=== PATIENT | male | born 1995 | race Caucasian/White ===

== ENCOUNTER 2018-12-13 05:53 | Emergency (ER) | payer OTHER, SELFPAY ==
[~2018-12-13] VITALS: Ht 165.1 cm; Wt 63.0 kg
[2018-12-13 06:02] VITALS: BP 106/65
== END 2018-12-13 09:07 | disposition left against medical advice (07) ==
LOC: ER 05:53
DX: M79.10 Myalgia, unspecified site (principal); F20.9 Schizophrenia, unspecified; F31.9 Bipolar disorder, unspecified
CPT/HCPCS: 99283

== ENCOUNTER 2018-12-13 09:17 | Emergency (ER) | payer OTHER, SELFPAY ==
[~2018-12-13] VITALS: Ht 160 cm; Wt 59.0 kg
[2018-12-13] MEDS ORDERED: ACETAMINOPHEN 325MG TABLET PO STA (20:13)
[2018-12-13 21:42] LABS: CHLORIDE 105 mEq/L (98-107)
[2018-12-13 21:45] LABS: BASOPHILS % 0.5 % (0.0-2.0); EOSINOPHILS % 0.3 % (0.0-5.0); HEMATOCRIT. 41.5 % (42.0-52.0); HEMOGLOBIN. 13.9 g/dL (14.0-18.0); LYMPHOCYTES % 9.9 % (20.0-50.0); MEAN CORPUSCULAR HEMOGLOBIN 30.4 pg (28.0-32.0); MEAN CORPUSCULAR VOLUME 90.6 fL (80.0-94.0); MEAN PLATELET VOLUME 8.7 fl (7.4-10.4); MONOCYTES % 12.5 % (2.0-8.0); NEUTROPHILS % 76.8 % (40.0-76.0); PLATELET 222 x1000/uL (130-400); RED BLOOD CELL COUNT 4.58 mill/uL (4.7-6.1); RED CELL DISTRIBUTION WIDTH 13.1 % (11.6-14.6)
[2018-12-13 21:47] LABS: ETHANOL BLOOD < 10 mg/dL
[2018-12-13] MEDS ORDERED: ZIPRASIDONE MESYLATE 20MG/VIAL IM ONE (22:00)
[2018-12-14 02:10] VITALS: BP 112/65
== END 2018-12-14 02:40 | disposition left against medical advice (07) ==
LOC: ER 09:17
DX: F23 Brief psychotic disorder (principal); F17.210 Nicotine dependence, cigarettes, uncomplicated
CPT/HCPCS: 36415; 80053; 80307; 80329; 85025; 96372; 99284; G0482; J3486

== ENCOUNTER 2018-12-16 13:12 | Emergency (ER) | payer OTHER, SELFPAY ==
[~2018-12-16] VITALS: Ht 157.5 cm; Wt 64.0 kg
[2018-12-16 13:15] VITALS: BP 109/64
== END 2018-12-16 19:30 | disposition left against medical advice (07) ==
LOC: ER 13:12
DX: R69 Illness, unspecified (principal); Z53.21 Procedure and treatment not carried out due to patient leaving prior to being seen by health care provider